=== PATIENT | female | born 1985 | race African-American/Black ===

== ENCOUNTER 2017-11-26 23:24 | Observation (INO) | payer OTHER ==
[~2017-11-26] VITALS: Ht 177.8 cm; Wt 81.8 kg
[~2017-11-26 23:24] MED LIST: FE C TABLET1 EACH PO; IBUPROFEN800 MG PO; NOHOMEMEDS; PRENATAL TABLE1 EAC3 PO; ULTRAM50 MG PO
[2017-11-27] VITALS (9 sets, daily range): BP systolic 104–134; BP diastolic 50–80
[2017-11-27 00:06] LABS: HEMATOCRIT 25.2 % (36.0-46.0); HEMOGLOBIN 7.3 G/DL (11.9-15.5); MCH 19.3 PG (29.0-34.0); MCV 66.5 FL (83-99); PLATELET COUNT 99 K/uL (156-360); RBC DIS.WIDTH-SD 65.9 % (39-53); RED BLOOD COUNT 3.79 M/uL (3.80-5.20); WHITE BLOOD COUNT 8.7 K/uL (4.1-10.2)
[2017-11-27 00:38] LABS: QUANTITATIVE HCG 33419.8 MIU/ML
[2017-11-27 00:57] LABS: APPEARANCE CLEAR ((CLEAR)); BILIRUBIN NEGATIVE; BLOOD MODERATE; COLOR STRAW ((YELLOW)); GLUCOSE (STRIP) NEGATIVE; KETONES NEGATIVE; LEUKOCYTES NEGATIVE; NITRITE NEGATIVE; PROTEIN (STRIP) NEGATIVE; SPECIFIC GRAVITY 1.003 (1.000-1.030); UROBILINOGEN 0.2 MG/DL (0.2-1.0)
[2017-11-27 01:05] LABS: BACTERIA RARE /HPF; EPITHELIAL CELLS RARE /HPF; MUCUS NONE SEEN /LPF; RED BLOOD CELLS 0-5 /HPF (0-5); UCUL ADDED? NO; WHITE BLOOD CELLS 0-5 /HPF (0-5)
[2017-11-27 01:18] LABS: ALBUMIN 4.4 g/dL (3.2-4.8)
[2017-11-27 01:19] LABS: CHLORIDE 104 mEq/L (99-109); POTASSIUM 3.4 mEq/L (3.7-5.4); SODIUM 135 mEq/L (136-147)
[2017-11-27 01:21] LABS: GLUCOSE 92 mg/dL (70-99); TOTAL PROTEIN 7.9 g/dL (6.4-8.3)
[2017-11-27 01:23] LABS: TOTAL BILIRUBIN 0.4 mg/dL (0.0-1.0)
[2017-11-27 01:24] LABS: ALKALINE PHOSPHATASE 52 IU/L (3-129)
[2017-11-27 01:25] LABS: CREATININE 0.8 mg/dL (0.6-1.3); GFR ESTIMATE (CALCULATED) > 59 mL/min/
[2017-11-27 01:26] LABS: AST (GOT) 15 IU/L (2-34); UREA NITROGEN (BUN) 10 mg/dL (9-23)
[2017-11-27 01:27] LABS: ALT (GPT) 9 IU/L (3-49)
[2017-11-27 01:35] LABS: INTER. NORMALIZED RATIO 1.1
[2017-11-27 01:44] LABS: DIRECT BILIRUBIN 0.2 mg/dL (0.0-0.3)
[2017-11-27 06:57] LABS: HEMATOCRIT 22.9 % (36.0-46.0); MCH 18.9 PG (29.0-34.0); MCHC 28.4 G/DL (30.0-36.0); MCV 66.6 FL (83-99); RBC DIS.WIDTH-CV 29.2 % (11.8-14.6); RBC DIS.WIDTH-SD 66.2 % (39-53); RED BLOOD COUNT 3.44 M/uL (3.80-5.20); WHITE BLOOD COUNT 6.5 K/uL (4.1-10.2)
[2017-11-27 07:03] LABS: HEMOGLOBIN 6.5 G/DL (11.9-15.5)
[2017-11-27 07:08] LABS: PLAT.SUFFICIENCY DECREASED; PLATELET COUNT 87 K/uL (156-360)
[2017-11-27 07:59] LABS: IRON 14 MCG/DL (35-150); TRANSFERRIN (TIBC) 322.8 mg/dL (215-380); TRANSFERRIN SATUR. 4 % (20-55)
[2017-11-27 08:43] LABS: FERRITIN 4 NG/ML (10-291)
[2017-11-27 08:51] LABS: FOLIC ACID (FOLATE) > 22.0 NG/ML (5.0-22.0)
[2017-11-27 15:18] LABS: HEMATOCRIT 26.9 % (36.0-46.0); HEMOGLOBIN 7.7 G/DL (11.9-15.5); MCH 19.8 PG (29.0-34.0); MCHC 28.6 G/DL (30.0-36.0); MCV 69.3 FL (83-99); PLATELET COUNT 90 K/uL (156-360); RBC DIS.WIDTH-CV 30.1 % (11.8-14.6); RBC DIS.WIDTH-SD 70.5 % (39-53); RED BLOOD COUNT 3.88 M/uL (3.80-5.20); WHITE BLOOD COUNT 4.9 K/uL (4.1-10.2)
== END 2017-11-27 17:15 | disposition home or self-care (01) ==
LOC: EME 23:24 → 2EAST 11-27 02:26 → EDOF 11-27 02:26 → ENRESERV 11-27 02:54 → 2EAST 11-27 03:20
PROVIDERS: Obstetrics & Gynecology; Obstetrics & Gynecology Obstetrics; Physician Assistant
PROC: 30233N1 Transfusion of Nonautologous Red Blood Cells into Peripheral Vein, Percutaneous Approach (ICD-10-PCS; principal; 2017-11-27)
DX: O20.8 Other hemorrhage in early pregnancy (principal); O99.011 Anemia complicating pregnancy, first trimester; D64.9 Anemia, unspecified; O99.331 Smoking (tobacco) complicating pregnancy, first trimester; F17.200 Nicotine dependence, unspecified, uncomplicated; O34.11 Maternal care for benign tumor of corpus uteri, first trimester; D25.9 Leiomyoma of uterus, unspecified; Z3A.01 Less than 8 weeks gestation of pregnancy
CPT/HCPCS: 76801; 80053; 81003; 82248; 82607; 82728; 82746; 83540; 84466; 84702; 85027; 85610; 85730; 86850; 86900; 86901; 86920; 99281; 99284; G0378; J7120; P9040